=== PATIENT | female | born 1990 | race Caucasian/White ===

== ENCOUNTER 2024-11-13 15:22 | Emergency (ER) | payer OTHER, SELFPAY ==
[2024-11-13 15:24] VITALS: BP 162/93; PULSE 99; RESP 18; TEMP 36.2; O2SAT 98; BMI 26.3
--- NOTE | 2024-11-13 15:35 | EKG12_ITS ---
Test Reason : CP Blood Pressure : */* mmHG Vent. Rate : 85 BPM Atrial Rate : 85 BPM P-R Int : 116 ms QRS Dur : 98 ms QT Int : 406 ms P-R-T Axes : 21 4 43 degrees QTcB Int : 483 ms Normal sinus rhythm Prolonged QT Abnormal ECG Confirmed by Miguel Delcid ([id number]), acquisitions editor BRANDON KELLY ([id number]) on 11/15/2024 10:56:31 AM Referred By: UG Confirmed By: Miguel Delcid
--- NOTE | 2024-11-13 15:37 | EX.ED.DYSGE1 ---
HPI History of Present Illness Chief Complaint: Chest Pain Detail of Chief Complaint: Discomfort left scapular/left shoulder region with paresthesia LUE Informant: patient Onset/Context/Timing Onset: Hours Context: Sudden Onset Timing: Intermittent Quality: Numbness tingling Location: Left scapular region, and left upper extremity and left jaw Current Severity: Mild Maximum Severity: Moderate Worsened by: Nothing Relieved by: Nothing Associated Symptoms Associated Symptoms: Patient states she is nervous Narrative Narrative: Patient is a 33-year-old woman with no significant past medical history who was sitting at her computer completing an assignment that is due today when she started to experience discomfort left scapular region described as tingling as well as left shoulder and left upper extremity pain prior to tingling going to the left side of the jaw. She has never had a thing like this before. Nothing makes it better or worse. She denies nausea or vomiting. She denies diaphoresis. She denies dyspnea, dyspnea on exertion. She has not a smoker. She states she has not had an alcoholic beverage in some time. She denies history of neck problems. She denies history of injury to the left shoulder in the recent or remote past. Prior similar symptoms: No Recent Illness/Hospitalization: No PFSH PFSH Medical History (Updated 11/13/24 @ 18:[address] Ramesh Haney MD) H/O supraventricular tachycardia Medical History no medical history no medical history Home Medications ?Medication ?Instructions ?Recorded ?Last Taken ?Type Ibuprofen [Motrin] 800 mg PO TID PRN PRN Pain #30 tabs 06/10/15 Unknown Rx doxycycline monohydrate 100 mg 100 mg PO BID ##2 06/10/15 Unknown Rx capsule (Monodox) hydrocodone 5 mg-acetaminophen 300 1 - 2 tab PO Q6H PRN PRN Pain #14 06/10/15 Unknown Rx mg tablet (Vicodin) tabs Allergy/AdvReac Type Severity Reaction Status Date / Time Sulfa (Sulfonamide Allergy Unknown Verified 11/13/24 15:24 Antibiotics) latex AdvReac Unknown Verified 11/13/24 15:24 Surgical History (Updated 11/13/24 @ 15:46 by Harper Hinojosa) History of appendectomy Social History Smoking Status: Former smoker ROS ROS ED Constitutional Constitutional ED: Denies chills, fever(s), subjective or sweats Eyes Eyes: Denies blurry vision or change in vision ENT ENT ED: Reports other Details: As reported in the HPI narrative she reported discomfort/numbness going to her jaw ; Denies rhinorrhea or sore throat Cardiovascular Cardiovascular: Reports chest pain; Denies orthopnea, palpitations, paroxysmal nocturnal dyspnea or racing heartbeat Respiratory/Chest Respiratory/Chest: Reports dyspnea; Denies cough, dyspnea on exertion, orthopnea or paroxysmal nocturnal dyspnea Gastrointestinal Gastrointestinal: Denies abdominal pain, nausea or vomiting Musculoskeletal Musculoskeletal: Reports neck pain; Denies arthralgias, back pain or myalgias Integumentary Denies rash Neurologic Neurologic: Reports paresthesias LUE (Circumferential and there are areas that are number than others.) Psychiatric Psychiatric: Reports anxiety; Denies depression Hematologic/Lymphatic Hematologic/Lymphatic: Reports systems reviewed and no addt'l complaints, except as documented EXAM Physical Exam Const Vital Signs: 11/13/24 15:24 11/13/24 15:44 11/13/24 17:03 Temperature 97.1 F L Temperature Source Temporal Pulse Rate 99 64 Respiratory Rate 18 18 Respiratory Effort Normal Non-Labored Blood Pressure 162/93 H 119/79 Blood Pressure Mean 116 92 Pulse Ox 98 99 Oxygen Delivery Method Room Air Room Air Positive well nourished and well developed Constitutional Narrative: Patient appears anxious. She has a tremor. There is a stammer to her voice. She has positive [place] sign bilaterally. Patient is on metoprolol for PSVT. She states she did take her morning dose. She states it is not normal for her blood pressure to be elevated. General Appearance ED: well developed and NAD HEENT Reports moist mucous membranes HEENT Narrative: Head is atraumatic normocephalic. Ears normal. Nares patent. Eyes PERRL and EOMs intact bilaterally General Eye ED: Negative for scleral icterus Neck no lymphadenopathy, supple and no JVD Resp normal respiratory effort and clear to auscultation bilaterally Cardio regular rhythm, S1 normal heart sound, S2 normal heart sound and no murmurs Rate: tachycardic GI normal to inspection, nondistended, normoactive bowel sounds, non-tender, non-distended and no masses; Negative for hepatosplenomegaly Back/Spine no CVA tenderness Extremity normal to inspection Extremity Narrative: Median, radial and ulnar nerve function intact. Radial pulses palpable and symmetric. General Extremety ED: Negative for edema General Extremity: Negative for edema Neuro oriented x3 and CN's II-XII intact bilaterally Sensorium / Orientation: alert Psych Mood & Affect: anxious Skin no rashes or lesions noted and skin turgor normal MDM MDM MDM Narrative Medical decision making narrative: EKG was obtained per nursing staff. Patient with stocking glove distribution of paresthesia. With her having bilateral Fostex I need to entertain possibility of hypocalcemia, hyperventilation however 1 would not expect her symptoms to be unilateral. Her neuroexam is nonfocal. BMP was obtained to assess electrolytes. VBG was obtained to assess acid-base status. Lab Data Attestation: I reviewed the patient's lab results. Lab results narrative: CBC is normal. Electrolyte panel is unremarkable. Glucose is slight elevated 103. Patient was informed of her laboratory results and EKG results. She was discharged to home. Labs: Laboratory Results - last 24 hr 11/13/24 15:49 WBC 7.6 RBC 4.72 Hgb 14.4 Hct 41.8 MCV 88.6 MCH 30.5 MCHC 34.4 RDW Std Deviation 41.7 RDW Coeff of Vanessa 12.7 Plt Count 289 MPV 9.7 Immature Gran % (Auto) 0.300 Neut % (Auto) 48.7 Lymph % (Auto) 39.9 [place] % (Auto) 9.7 Eos % (Auto) 0.7 Baso % (Auto) 0.7 Absolute Neuts (auto) 3.7 Absolute Lymphs (auto) 3.04 Nucleated RBC % 0 Sodium 138 Potassium 3.5 Chloride 103 Carbon Dioxide 21.6 Anion Gap 13 BUN 9 Creatinine 0.77 Estim Creat Clear Calc 108.57 Est GFR (MDRD) Non-Af 103 BUN/Creatinine Ratio 12.0 Glucose 103 H Calcium 9.2 EKG Initial EKG: Attestation: I personally reviewed and interpreted this EKG as follows: Interpretation: Sinus Rhythm (Sinus rhythm with a prolonged QT interval. Rate is 84. [place] interval is 116 ms. QRS duration 98 ms. QT duration 406 ms with a QTc of 483 ms. [place] is normal) Treatment and Re-Evaluation :: Patient's blood pressure has normalized. Heart rate has normalized. Suspect this may have been due to anxiety. Discharge Plan Triage Chief Complaint: Chest Pain ED Provider: Raemsh Haney Dx/Rx/DC Orders Clinical Impression: Paresthesia of left upper extremity, Atypical chest pain Instructions: ED Paraesthesias Prescriptions: No Action Ibuprofen [Motrin] 800 MG tablet 800 mg PO TID PRN PRN (Reason: Pain) Qty: 30 1RF hydrocodone-acetaminophen [Vicodin] 1 EACH tablet 1 - 2 tab PO Q6H PRN PRN (Reason: Pain) Qty: 14 0RF doxycycline monohydrate [Monodox] 100 MG capsule 100 mg PO BID Qty: 2 0RF Primary Care Provider: Yared Ratliff Referrals: Alek Garcia MD [Med Staff - Logistics System Engineer] - 1 Week if not improving Care Physician,No Primary [Non-Staff] - Activity Restrictions/Additional Instructions: Follow-up with your doctor. The name of your doctor will be on your insurance card issued to you by you MR. If there is no doctor's name on your insurance card follow-up with Dr. Garcia Print Language: Pashto Disposition Disposition: Home, Self Care
[2024-11-13 16:00] LABS: Absolute Lymphocyte Count 3.04 X10^3/uL (0.83-4.51); Absolute Neutrophil Count 3.7 X10^3/uL (2.0-7.7); Basophil# 0.05 X10^3/uL; Basophil% 0.7 % (0-1); Eosinophil# 0.05 X10^3/uL; Eosinophils% 0.7 % (0-5); Hematocrit 41.8 % (37-47); Hemoglobin 14.4 g/dL (12.0-15.0); Lymphocyte # 3.04 X10^3/ul (0.83-4.51); Lymphocyte % 39.9 % (19-41); Mean Corp Hgb Conc 34.4 g/dL (32-36); Mean Corpuscular Hgb 30.5 pg (27.0-32.0); Mean Corpuscular Volume 88.6 fL (81-99); Mean Platelet Vol. 9.7 fl (6.2-12.0); Monocyte# 0.74 X10^3/uL; Monocyte% 9.7 % (0-10); NRBC Flagged by Analyzer 0 % (0-5); Neutrophil # 3.71 X10^3/uL (2.7-7.7); Neutrophil % 48.7 % (47-70); Platelet Count 289 K/mm3 (150-450); RBC Distribution Width CV 12.7 % (11.6-14.6); RBC Distribution Width SD 41.7 fl (35.1-43.9); Red Blood Count 4.72 M/mm3 (4.2-5.4); White Blood Count 7.6 K/mm3 (4.4-11.0)
[2024-11-13 16:41] LABS: Anion Gap 13 (5-15); BUN 9 mg/dL (4-19); Calcium,Total 9.2 mg/dL (7.6-11.0); Carbon Dioxide 21.6 mmol/L (21.0-32.0); Chloride 103 mmol/L (98-108); Creatinine, Serum 0.77 mg/dL (0.70-1.20); EST Glomerular Filtration Rate 103 (>60); Estimated Creatinine Clearance 108.57 ml/min (50-250); Glucose 103 mg/dL (70-99); Potassium 3.5 mmol/L (3.3-5.1); Sodium Level 138 mmol/L (133-145)
[2024-11-13 17:03] VITALS: BP 119/79; PULSE 64; RESP 18; O2SAT 99
[2024-11-13 18:06] VITALS: BP 117/93; PULSE 70; RESP 18; TEMP 36.8; O2SAT 100
== END 2024-11-13 18:07 | disposition home or self-care (01) ==
PROVIDERS: Emergency Provider Emergency Medicine; PCP Student in an Organized Health Care Education/Training Program; Visit Provider Emergency Medicine
DX: R07.89 Other chest pain (principal); I47.10 Supraventricular tachycardia, unspecified; R20.2 Paresthesia of skin; F41.9 Anxiety disorder, unspecified; Z88.2 Allergy status to sulfonamides; Z87.891 Personal history of nicotine dependence; Z79.899 Other long term (current) drug therapy
CPT/HCPCS: 80048; 85025; 93005; 99284; A4216